=== PATIENT | male | born 1960 | race Caucasian/White ===

== ENCOUNTER 2020-01-11 01:41 | Emergency (ER) | payer BC ==
[2020-01-11] MEDS ORDERED: Tetracaine HCl/PF 0.5% 4 ML Bottle EYERT ONE (01:58)
[2020-01-11] MEDS ORDERED: Ciprofloxacin 0.3% Ophth Soln 5 ML Bottle EARRT ONE (02:16)
--- NOTE | 2020-01-11 02:16 | EDM.PDOC ---
ED HPI GENERAL MEDICAL PROBLEM - General Chief Complaint: General Stated Complaint: R eye pain Time Seen by Provider: 01/11/20 02:09 Source of Information: Reports: Patient History Limitations: Reports: No Limitations - History of Present Illness INITIAL COMMENTS - FREE TEXT/NARRATIVE: 59 YO WM PRESENTS TO ER COMPLAINING OF RIGHT EYE PAIN THAT BEGAN TONIGHT. PT REPORTS HE WAS HAVING DIFFICULTY SLEEPING DUE TO PAIN. PT REPORTS HE FEELS LIKE SOMETHING HAS SCRATCHED HIS EYE. PT DENIES VISUAL CHANGES, NO PRESSURE BEHIND EYE, NO HEADACHE. PT DENIES ANY KNOWN INJURY TO EYE. PT DENIES FEVER/CHILLS, NO NAUSEA/VOMITING OR DIZZINESS. Onset: Today Quality: Reports: Ache Severity: Moderate Improves with: Reports: None Worsens with: Reports: None Associated Symptoms: Reports: No Other Symptoms ED ROS GENERAL - Review of Systems Review Of Systems: See Below Constitutional: Reports: No Symptoms HEENT: Reports: Eye Pain Respiratory: Reports: No Symptoms Cardiovascular: Reports: No Symptoms Endocrine: Reports: No Symptoms GI/Abdominal: Reports: No Symptoms : Reports: No Symptoms Musculoskeletal: Reports: No Symptoms Skin: Reports: No Symptoms Neurological: Reports: No Symptoms Psychiatric: Reports: No Symptoms Hematologic/Lymphatic: Reports: No Symptoms Immunologic: Reports: No Symptoms ED EXAM, GENERAL - Physical Exam Exam: See Below Exam Limited By: No Limitations General Appearance: Alert, WD/WN, No Apparent Distress Eye Exam: Right Eye: Corneal Abrasion, Bilateral Eye: EOMI, PERRL Throat/Mouth: Normal Inspection, Normal Lips, Normal Teeth, Normal Gums, Normal Oropharynx, Normal Voice, No Airway Compromise Head: Atraumatic, Normocephalic Neck: Normal Inspection, Supple, Non-Tender, Full Range of Motion Respiratory/Chest: No Respiratory Distress, Lungs Clear, Normal Breath Sounds, No Accessory Muscle Use, Chest Non-Tender Cardiovascular: Normal Peripheral Pulses, Regular Rate, Rhythm, No Edema, No Gallop, No JVD, No Murmur, No Rub GI/Abdominal: Normal Bowel Sounds, Soft, Non-Tender, No Organomegaly, No Distention, No Abnormal Bruit, No Mass Back Exam: Normal Inspection, Full Range of Motion, NT Extremities: Normal Inspection, Normal Range of Motion, Non-Tender, Normal Capillary Refill, No Pedal Edema Neurological: Alert, Oriented, CN II-XII Intact, Normal Cognition, Normal Gait, Normal Reflexes, No Motor/Sensory Deficits Psychiatric: Normal Affect, Normal Mood Skin Exam: Warm, Dry, Intact, Normal Color, No Rash ED EYE PROCEDURE - Eye Procedure Eye Irrigated w/ Saline (ccs): 10 Antibiotic Oinment/Drps Admin: Right Eye Progress: CORNEAL ABRASION AT 3 OCLOCK Course - Orders/Labs/Meds Meds: Medications Discontinued Medications Generic Name Dose Route Start Last Admin Trade Name Sharee PRN Reason Stop Dose Admin Tetracaine HCl 1 ml 01/11/20 01:58 01/11/20 02:00 Tetracaine 0.5% Steri-Unit Valentina EYERT 01/11/20 01:59 3 drop ASDIRECTED ONE Administration - Re-Assessments/Exams Free Text/Narrative Re-Assessment/Exam: 01/11/20 02:23 OS-20/20 OD-20/30 Departure - Departure Time of Disposition: 02:25 Disposition: Home, Self-Care 01 Condition: Good Clinical Impression: Corneal abrasion Qualifiers: Encounter type: initial encounter Laterality: right Qualified Code(s): S05.01XA - Injury of conjunctiva and corneal abrasion without foreign body, right eye, initial encounter - Discharge Information Instructions: Corneal Abrasion Referrals: Юлия Moon, [facility] [Primary Care Provider] - Additional Instructions: 1. DISCHARGE HOME 2. CILOX[facility] EYE DROPS 3 DROPS IN AFFECTED EYE EVERY 4 HOURS X 7 DAYS 3. FOLLOW UP WITH PCP THIS WEEK FOR RECHECK 4. RETURN TO ER FOR WORSENING SYMPTOMS - Assessment/Plan Assessment:: 1. RIGHT SMALL CORNEAL ABRASION Plan: 1. DISCHARGE HOME 2. CILOXAN EYE DROPS 3 DROPS IN AFFECTED EYE EVERY 4 HOURS X 7 DAYS 3. FOLLOW UP WITH PCP THIS WEEK FOR RECHECK 4. RETURN TO ER FOR WORSENING SYMPTOMS
== END 2020-01-11 02:33 | disposition home or self-care (01) ==
LOC: KA.ED 01:41 → SUPCPDRO 01:41 → KA.ED 02:33
DX: S05.01XA Injury of conjunctiva and corneal abrasion without foreign body, right eye, initial encounter (principal); X58.XXXA Exposure to other specified factors, initial encounter
CPT/HCPCS: 99283; A9270-GY

== ENCOUNTER 2021-12-04 09:25 | Emergency (ER) | payer BC ==
[2021-12-18 13:28] LABS: ANION GAP 5.7 mmol/L (5-15); CHLORIDE,CL 105 mmol/L (98-115); SODIUM,NA 138 mmol/L (136-145)
[2021-12-18 13:29] LABS: ESTIMATED GFR 97 mL/min (>=60)
== END 2021-12-04 11:55 ==
LOC: KA.ED 09:25
DX: R07.89 Other chest pain (principal); R03.0 Elevated blood-pressure reading, without diagnosis of hypertension
CPT/HCPCS: 36415; 71046; 80048; 84484; 85025; 93005; 99285

== ENCOUNTER 2023-05-05 21:37 | Emergency (ER) | payer BC ==
[2023-05-05] MEDS ORDERED: Sodium Chloride 0.9% 10 ML Syringe FLUSH PRN (21:44)
[2023-05-05] MEDS: Sodium Chloride 0.9% 1,000 ML IV ONE (22:00)
[2023-05-05 22:04] LABS: BASOPHILS ABSOLUTE AUTO 0.06 10^3/uL (0.00-0.10); BASOPHILS PERCENT AUTO 0.7 % (0.0-1.0); EOSINOPHILS ABSOLUTE AUTO 0.35 10^3/uL (0.10-0.30); EOSINOPHILS PERCENT AUTO 4.1 % (1.0-3.0); HEMATOCRIT 41.1 % (40.0-52.0); HEMOGLOBIN 14.2 g/dL (13.0-17.0); IMMATURE GRAN ABSOLUTE AUTO 0.01 10^3/uL (0.00-0.50); IMMATURE GRAN PERCENT AUTO 0.1 % (0.0-5.0); LYMPHOCYTES ABSOLUTE AUTO 2.66 10^3/uL (1.00-4.00); LYMPHOCYTES PERCENT AUTO 31.1 % (20.0-40.0); MEAN CORPUSCULAR HEMOGLOBIN 32.3 pg (27.0-31.0); MEAN CORPUSCULAR HGB CONC 34.5 g/dL (32.0-36.0); MEAN CORPUSCULAR VOLUME 93.6 fL (82.0-92.0); MEAN PLATELET VOLUME 10.2 fL (7.4-10.4); MONOCYTES ABSOLUTE AUTO 0.87 10^3/uL (0.10-0.80); MONOCYTES PERCENT AUTO 10.2 % (2.0-8.0); NEUTROPHILS ABSOLUTE AUTO 4.59 10^3/uL (2.50-7.00); NEUTROPHILS PERCENT AUTO 53.8 % (50.0-70.0); PLATELET COUNT,PLT 219 10^3/uL (150-400); RED BLOOD CELL COUNT 4.39 10^6/uL (4.50-6.00); RED CELL DISTRIBUTION WIDTH 11.4 % (11.5-14.5); WHITE BLOOD CELL COUNT,WBC 8.54 10^3/uL (5.00-10.00)
[2023-05-05 22:19] LABS: ALBUMIN 3.6 g/dL (3.40-5.00); ANION GAP 11.5 mmol/L (5-15); BILIRUBIN TOTAL 0.5 mg/dL (0.2-1.0); CALCIUM 8.5 mg/dL (8.7-10.3); CARBON DIOXIDE,CO2 29.8 mmol/L (21.0-32.0); CREATININE 0.8 mg/dL (0.51-1.17); EST CRCL DRUG DOSING (CG) 101.74 mL/min; POTASSIUM,K 4.3 mmol/L (3.5-5.1); PROTEIN TOTAL,TP 6.6 g/dL (6.4-8.2)
[2023-05-05 22:32] LABS: APPEARANCE,URINE CLEAR (CLEAR); BILIRUBIN,URINE NEGATIVE (NEGATIVE); COLOR,URINE YELLOW (YELLOW); GLUCOSE,URINE NEGATIVE (NEGATIVE); KETONES,URINE NEGATIVE (NEGATIVE); LEUKOCYTE ESTERASE,URINE NEGATIVE (NEGATIVE); NITRITE,URINE NEGATIVE (NEGATIVE); OCCULT BLOOD,URINE NEGATIVE (NEGATIVE); PH,URINE 6.5 (5.0-9.0); PROTEIN,URINE NEGATIVE (NEGATIVE); UROBILINOGEN,URINE 0.2 E.U./dL (0.2-1.0)
[2023-05-05] MEDS: Iopamidol 755 Mg/ML 100 ML Bottle IV ONE (22:45)
[2023-05-05] MEDS: Sodium Chloride 0.9% 50 ML IV SCH (22:55)
[2023-05-05] MEDS: Ketorolac 30 MG/ML SDV IVPUSH ONE (23:17)
== END 2023-05-06 00:25 | disposition home or self-care (01) ==
LOC: KA.ED 21:37
DX: K40.90 Unilateral inguinal hernia, without obstruction or gangrene, not specified as recurrent (principal); I72.3 Aneurysm of iliac artery; I71.40 Abdominal aortic aneurysm, without rupture, unspecified; J43.9 Emphysema, unspecified; Z87.19 Personal history of other diseases of the digestive system; I10 Essential (primary) hypertension; K21.9 Gastro-esophageal reflux disease without esophagitis; E78.00 Pure hypercholesterolemia, unspecified; F17.210 Nicotine dependence, cigarettes, uncomplicated; Z79.899 Other long term (current) drug therapy
CPT/HCPCS: 71046; 74177; 80053; 81003; 82150; 83605; 83690; 85025; 96374; 99284; 99284-25; J1885; J3490; J7030; Q9967